=== PATIENT | female | born 1930 | race Caucasian/White ===

== ENCOUNTER → 2016-04-28 | Outpatient (CLI) | payer OTHER, MEDICARE ==
--- NOTE | 2016-04-29 09:03 | DX ---
DEXA Bone Mineral Densitometry Clinical Indications: Osteoporosis screening in a postmenopausal female .The patient is on Synthroi d therapy. Comparison: November 2011 and October 2007. Technique: Bone Mineral Densitometry (BMD) by Dual Energy X-Ray Absorptiometry (DEXA) was performed utilizing the Eversight scanner. The lumbar spine was evaluated in the AP projection. The daniel ateral hips and left forearm were evaluated in the AP projection. Vertebral fracture assessment was also performed. AP Lumbar Spine: The L1, L2, L3 and L4 vertebral bodies were evaluated. Lumbar spine values are of dubious validity due to sclerosis and minimal scoliotic curvature. AP Left Hip: Femoral neck. BMD: 0.792 gm/cm2 T-score: -1.8 SD Z-score: 0.6 SD Not significantly changed from the most recent study. AP Right Hip: Total hip. BMD: 0.854 gm/cm2 T-score: -1.2 SD Z-score: 1.0 SD Not significantly changed. AP Left Forearm, 03/18: BMD: 0.745 gm/cm2 T-score: -1.5 SD Z-score: 1.5 SD Not significantly changed from the most recent study. Vertebral Fracture Assessment: No significant fracture deformity. Conclusion: Considering the lowest measured site, the patient's bone density is low; osteopenic ( -2 .5 < T-score < -1 ). The ten year risk for any major osteoporotic fracture is 14.6 % and for a hip fracture is 4.2 %. Any bone loss in this patient is probably related to aging or estrogen deficiency. Recommendations: To prevent osteoporosis and to promote bone density, consider the following recomme ndations: 1. Pursue a regular regimen of weightbearing and muscle strengthening exercises. 2. Optimize daily calcium intake. 3. Check serum hydroxy vitamin D3 (normal >30ng/ml). 4. Ensure daily intake of vitamin D is 800 international units. 5. Consider follow-up DEXA scan in two years to assess the rate of bone loss in this patient.
== END ==
LOC: FIMAGING 14:39
PROVIDERS: ATTEND Internal Medicine
DX: Z13.820 Encounter for screening for osteoporosis (principal); M85.80 Other specified disorders of bone density and structure, unspecified site; E03.9 Hypothyroidism, unspecified; Z78.0 Asymptomatic menopausal state; Z79.899 Other long term (current) drug therapy

== ENCOUNTER → 2016-06-30 | Outpatient (CLI) | payer OTHER, MEDICARE | LOC: BHFA 13:00 | PROVIDERS: ATTEND Internal Medicine Cardiovascular Disease | DX: R07.9 Chest pain, unspecified (principal); R06.02 Shortness of breath | CPT/HCPCS: 78452; 93017; A9500 ==

== ENCOUNTER → 2016-07-01 | Outpatient (CLI) | payer OTHER, MEDICARE | LOC: BHFA 09:15 | PROVIDERS: ATTEND Internal Medicine | DX: R07.9 Chest pain, unspecified (principal); R55 Syncope and collapse; R06.02 Shortness of breath; R42 Dizziness and giddiness ==

== ENCOUNTER → 2016-07-22 | Outpatient (CLI) | payer OTHER, MEDICARE | LOC: BHFA 09:00 | PROVIDERS: ATTEND Internal Medicine | DX: R42 Dizziness and giddiness (principal); R06.02 Shortness of breath ==

== ENCOUNTER → 2016-07-24 | Outpatient (CLI) | payer OTHER, MEDICARE | LOC: BHFA 10:30 | PROVIDERS: ATTEND Internal Medicine Cardiovascular Disease | DX: R42 Dizziness and giddiness (principal) ==

== ENCOUNTER 2016-08-05 10:36 | Day surgery (SDC) | payer OTHER, MEDICARE ==
[2016-08-05] MEDS ORDERED: LIDOCAINE 1% 30 ML SDV ONE (12:02)
--- NOTE | 2016-08-05 15:01 | CPR ---
[f rep st] NONINVASIVE CARDIAC PROCEDURE REPORT PROCEDURE PERFORMED: Implantable loop recorder placement. INDICATION: Near syncope. PROCEDURE: Written informed consent was obtained. No sedation was administered. Local anesthesia was administered in the left parasternal area after prepping and draping under sterile precautions. LINQ monitor was placed in the 4th left intercostal space using standard technique, and the wound w as closed using 2 jalen. The device is a [employer] LINQ serial number [id number]. Device is programmed to detect hear t rate less than 40 beats per minute, more than 150 beats per minute, pauses more than 3 seconds, or patient activated events. No complications. /[id number]/MODL
== END 2016-08-05 14:45 | disposition home or self-care (01) ==
LOC: FCATH 10:36
PROVIDERS: ATTEND Internal Medicine Cardiovascular Disease
PROC: 0JH632Z Insertion of Monitoring Device into Chest Subcutaneous Tissue and Fascia, Percutaneous Approach (ICD-10-PCS; principal; 2016-08-05)
DX: R55 Syncope and collapse (principal)
CPT/HCPCS: 33282; C1764

== ENCOUNTER → 2016-08-27 | Outpatient (CLI) | payer OTHER, MEDICARE | LOC: BHFA 11:00 | PROVIDERS: ATTEND Internal Medicine Cardiovascular Disease | DX: R06.02 Shortness of breath (principal); R42 Dizziness and giddiness ==

== ENCOUNTER → 2016-10-27 | Outpatient (CLI) | payer OTHER, MEDICARE | LOC: CIMAGING 10:44 | PROVIDERS: ATTEND Internal Medicine | DX: Z12.31 Encounter for screening mammogram for malignant neoplasm of breast (principal) | CPT/HCPCS: G0202 ==

== ENCOUNTER → 2016-11-13 | Outpatient (CLI) | payer OTHER, MEDICARE | LOC: BHFA 13:45 | PROVIDERS: ATTEND Internal Medicine Cardiovascular Disease | DX: R00.2 Palpitations (principal) ==

== ENCOUNTER 2017-04-28 09:50 | Emergency (ER) | payer OTHER, MEDICARE ==
[2017-04-28 10:00] VITALS: TEMP 98.2
--- NOTE | 2017-04-28 10:09 | CPEKG ---
Heart Rate: 142 RR Interval: 423 QRSD Interval: 76 QT Interval: 296 QTC Interval: 455 QRS [place]: -59 T Wave [place]: 108 EKG Severity - ABNORMAL ECG - EKG Impression: JUNCTIONAL TACHYCARDIA EKG Impression: PROBABLE INFERIOR INFARCT, OLD EKG Impression: ABNRM R PROG, CONSIDER ASMI OR LEAD PLACEMENT EKG Impression: LATERAL LEADS ARE ALSO INVOLVED Electronically Signed By: Selvin Hernandez 28-Apr-2017 11:50:02
[2017-04-28] MEDS ORDERED: NS 500 ML IV ONE (10:17)
--- NOTE | 2017-04-28 10:18 | EDPHY ---
H & P Stated Complaint: tachycardia Time Seen by Provider: 04/28/17 10:03 HPI/ROS: CHIEF COMPLAINT: Lightheadedness HISTORY OF PRESENT ILLNESS: The patient presents to the emergency department with a chief complaint of lightheadedness. The patient felt mild dyspnea throughout the day yesterday. She felt poorly last night. She does have an implantable recorder. She reported an event had o'clock in the morning and was notified cardiology did she was having tachycardia. She presents to the emergency department at the recommendation of her molding manager. The patient currently denies any chest pain or shortness of breath. She denies any recent fever, cough or congestion. The patient is currently anticoagulated in takes diltiazem. She is status post ablation approximately 10 years ago. REVIEW OF SYSTEMS: A comprehensive 10 point review of systems is otherwise negative aside from elements mentioned in the history of present illness. Source: Patient Exam Limitations: No limitations - Personal History Tetanus Vaccine Date: >10 YRS - Medical/Surgical History Hx Asthma: No Hx Chronic Respiratory Disease: No Hx Diabetes: No Hx Cardiac Disease: Yes Hx Renal Disease: No Hx Cirrhosis: No Hx Alcoholism: No Hx HIV/AIDS: No Hx Splenectomy or Spleen Trauma: No Other PMH: afib, hypothyroid, ablation, MARIE knee replacement, cataract surgery MARIE, ganglioma surgery, hysterectomy - Social History Smoking Status: Never smoked - Physical Exam Exam: General Appearance: Alert, no distress Eyes: Pupils equal and round no pallor or injection ENT, Mouth: Mucous membranes moist Respiratory: There are no retractions, lungs are clear to auscultation Cardiovascular: Tachycardic, regular Gastrointestinal: Abdomen is soft and nontender, no masses, bowel sounds normal Neurological: Grossly normal motor exam with equal strength in all 4 extremities Skin: Warm and dry, no rashes Musculoskeletal: Neck is supple nontender Extremities: symmetrical, full range of motion Constitutional: Initial Vital Signs Temperature (C) 36.8 C 04/28/17 09:56 Heart Rate 147 H 04/28/17 09:56 Respiratory Rate 20 04/28/17 09:56 Blood Pressure 96/79 L 04/28/17 09:56 O2 Sat (%) 96 04/28/17 09:56 O2 Delivery Mode Room Air Allergies/Adverse Reactions: No Allergies [NKDA] Allergy (Verified 04/28/17 09:54) Home Medications: Medication Instructions Recorded Oxybutynin Chloride [Ditropan 5mg 5 mg PO BID 02/26/12 (RX)] Vit C/Dl-E AC/Lut/Copper/Znox 1 each PO BID 02/26/12 [Preservision Softgel] Levothyroxine [Synthroid 25 mcg 25 mcg PO DAILY06 05/11/12 (RX)] Recoonciled 05/11/12 05/11/12 Rn Or Lpn Completed 05/11/12 05/11/12 Marco A 04/28/17 Fish 04/28/17 Medical Decision Making - Diagnostics EKG Interpretation: EKG #1: Complete interpretation has been separately recorded in the [facility] archive. Summary impression: Narrow complex regular tachycardia. EKG #2 (status post spontaneous conversion): Complete interpretation has been separately recorded in the [employer] archive. Summary impression: Sinus rhythm, first-degree AV block ED Course/Re-evaluation: The patient had an IV established. She presents to the ED with a narrow complex regular tachycardia. I do not see obvious flutter waves. I did discuss the case with Dr. Oscar Cheney. The patient is currently anticoagulated and NPO. She will be taken to the [facility] for cardioversion. The patient was noted to have an elevated BUN of 35 in certainly does have a mild component of dehydration. She received a L of normal saline in the emergency department. While in the ED, the patient converted back to a sinus rhythm. She has a fairly significant first-degree AV block which is chronic. I discussed case with her molding manager Dr. Cheney. At this point time she will be discharged home in the absence of any ongoing arrhythmia or symptoms. He will contact her to schedule a follow-up visit. His recommendation likely will be for ablation as the patient's MI interval makes additional increases her calcium channel aide problematic. 1:00 p.m.: The patient will be discharged home in stable condition. Differential Diagnosis: Differential diagnosis considered includes atrial fibrillation, atrial flutter, SVT, dehydration - Data Points Laboratory Results: Laboratory Results 04/28/17 10:10 04/28/17 10:10 04/28/17 04/28/17 04/28/17 10:10 10:10 10:10 WBC 17.00 10^3/uL H 10^3/uL (3.80-9.50) RBC 4.70 10^6/uL 10^6/uL (4.18-5.33) Hgb 14.5 g/dL g/dL (12.6-16.3) Hct 42.9 % % (38.0-47.0) MCV 91.3 fL fL (81.5-99.8) MCH 30.9 pg pg (27.9-34.1) MCHC 33.8 g/dL g/dL (32.4-36.7) RDW 13.2 % % (11.5-15.2) Plt Count 355 10^3/uL 10^3/uL (150-400) MPV 9.1 fL fL (8.7-11.7) Neut % (Auto) 83.6 % H % (39.3-74.2) Lymph % (Auto) 9.6 % L % (15.0-45.0) [place] % (Auto) 5.6 % % (4.5-13.0) Eos % (Auto) 0.0 % L % (0.6-7.6) Baso % (Auto) 0.1 % L % (0.3-1.7) Nucleat RBC Rel Count 0.0 % % (0.0-0.2) Absolute Neuts (auto) 14.21 10^3/uL H 10^3/uL (1.70-6.50) Absolute Lymphs (auto) 1.63 10^3/uL 10^3/uL (1.00-3.00) Absolute Monos (auto) 0.96 10^3/uL H 10^3/uL (0.30-0.80) Absolute Eos (auto) 0.00 10^3/uL L 10^3/uL (0.03-0.40) Absolute Basos (auto) 0.02 10^3/uL 10^3/uL (0.02-0.10) Absolute Nucleated RBC 0.00 10^3/uL 10^3/uL (0-0.01) Immature Gran % 1.1 % % (0.0-1.1) Immature Gran # 0.18 10^3/uL H 10^3/uL (0.00-0.10) PT 14.0 SEC SEC (12.0-15.0) INR 1.06 (0.83-1.16) Sodium 137 mEq/L mEq/L (135-145) Potassium 4.4 mEq/L mEq/L (3.5-5.2) Chloride 105 mEq/L mEq/L (97-110) Carbon Dioxide 18 mEq/l L mEq/l (22-31) Anion Gap 14 mEq/L mEq/L (8-16) BUN 35 mg/dL H mg/dL (7-23) Creatinine 0.9 mg/dL mg/dL (0.6-1.0) Estimated GFR 60 Glucose 138 mg/dL H mg/dL (70-100) Calcium 10.7 mg/dL H mg/dL (8.5-10.4) Phosphorus 3.1 mg/dL mg/dL (2.5-4.5) Medications Given: Discontinued Medications Sodium Chloride (Ns) 500 mls @ 1,000 mls/hr IV EDNOW ONE PRN Reason: Protocol Stop: 04/28/17 10:46 Last Admin: 04/28/17 10:54 Dose: 500 mls Sodium Chloride (Ns) 1,000 mls @ 0 mls/hr IV EDNOW ONE; Wide Open PRN Reason: Protocol Stop: 04/28/17 12:25 Last Admin: 04/28/17 12:28 Dose: 1,000 mls Departure - Departure Disposition: Home, Routine, Self-Care Clinical Impression: Palpitations Condition: Good Instructions: Heart Palpitations (ED) Additional Instructions: 1. Please return to the ED for any chest pain, shortness of breath, recurrent palpitations or other concerns. 2. Please try and increase your fluid intake as mild dehydration may have contributed to your symptoms today. 3. Dr. Cheney will contact you to schedule a follow-up visit to discuss further treatment options. Referrals: Nakia Dubose MD [Primary Care Provider] - As per Instructions
[2017-04-28 10:22] VITALS: RESP 18
[2017-04-28 10:22] LABS: PLATELET COUNT 355 10^3/uL (150-400)
[2017-04-28 10:30] LABS: INR 1.06 (0.83-1.16)
--- NOTE | 2017-04-28 11:06 | CPEKG ---
Heart Rate: 75 RR Interval: 800 P-R Interval: 336 QRSD Interval: 80 QT Interval: 360 QTC Interval: 402 P [place]: 255 QRS [place]: -48 T Wave [place]: 20 EKG Severity - ABNORMAL ECG - EKG Impression: SINUS OR ECTOPIC ATRIAL RHYTHM EKG Impression: FIRST DEGREE AV BLOCK EKG Impression: LAD, CONSIDER LAFB OR INFERIOR INFARCT EKG Impression: ABNRM R PROG, CONSIDER ASMI OR LEAD PLACEMENT Electronically Signed By: Selvin Hernandez 28-Apr-2017 11:50:02
[2017-04-28] MEDS ORDERED: NS 1,000 ML IV ONE (12:24)
[2017-04-28 13:33] VITALS: BP 150/86; PULSE 59; O2SAT 97
== END 2017-04-28 13:33 | disposition home or self-care (01) ==
DX: R00.2 Palpitations (principal); E86.9 Volume depletion, unspecified

== ENCOUNTER → 2017-05-07 | Outpatient (CLI) | payer OTHER, MEDICARE | LOC: BHFA 14:00 | PROVIDERS: ATTEND Internal Medicine Interventional Cardiology | DX: R06.02 Shortness of breath (principal); I47.1 Supraventricular tachycardia; M54.9 Dorsalgia, unspecified; Z80.51 Family history of malignant neoplasm of kidney | CPT/HCPCS: 78452; 93017; A9500 ==

== ENCOUNTER → 2017-05-11 | Outpatient (CLI) | payer OTHER, MEDICARE ==
[~2017-05-11] MED LIST: IOPAMIDOL (ISOVUE 370) 100 ML BTL IV ONE
== END ==
LOC: CIMAGING 13:23
PROVIDERS: ATTEND Internal Medicine Cardiovascular Disease
DX: I27.82 Chronic pulmonary embolism (principal); I70.0 Atherosclerosis of aorta; K44.9 Diaphragmatic hernia without obstruction or gangrene; I47.1 Supraventricular tachycardia; M51.34 Other intervertebral disc degeneration, thoracic region; M51.36 Other intervertebral disc degeneration, lumbar region; M48.061 Spinal stenosis, lumbar region without neurogenic claudication; Z80.51 Family history of malignant neoplasm of kidney
CPT/HCPCS: 71270; 74170; Q9967

== ENCOUNTER → 2017-05-18 | Outpatient (CLI) | payer OTHER, MEDICARE | LOC: BHCLAF 11:30 | PROVIDERS: ATTEND Internal Medicine Cardiovascular Disease | DX: R06.02 Shortness of breath (principal); I47.1 Supraventricular tachycardia | CPT/HCPCS: 93306-PO ==

== ENCOUNTER 2017-06-23 09:22 | Emergency (ER) | payer OTHER, MEDICARE ==
--- NOTE | 2017-06-23 09:42 | EDPHY ---
General - History Smoking Status: Never smoked Time Seen by Provider: 06/23/17 09:32 Narrative: CHIEF COMPLAINT: Bilateral shoulder pain HISTORY OF PRESENT ILLNESS: Patient complains of the right and left shoulders. The right shoulder pain started Thursday when she twisted awkwardly in her closet. She began to fell and caught herself with the right shoulder. She has had moderate pain since then. Pain does not radiate. It is worse with any kind of movement of the shoulder. Minimal improvement rest. Last night she felt a sudden onset of pain in the left shoulder as she twisted awkwardly as well. It is very tender to the touch. Unable to move the shoulder away from her. No direct trauma to the left shoulder. No chest pain or shortness of breath. No weakness. She has baseline paresthesia of both hands that is unremarkable and unchanged from the injury. Right-hand dominant REVIEW OF SYSTEMS: Ten systems reviewed and are negative unless otherwise noted in the HPI PCP: Dr. Win SPECIALISTS: Dr. Ferrell, orthopedist PAST MEDICAL HISTORY: Osteoarthritis, atrial fibrillation, hypothyroid, cardiac ablation, cataract, ganglia [place] PAST SURGICAL HISTORY: Left shoulder arthroplasty, cardiac ablation, bilateral TKA, cataract removal, ganglion low removal, hysterectomy SOCIAL HISTORY: Never smoker. Occasional alcohol use. Lives here independently with her spouse. FAMILY HISTORY: Noncontributory EXAMINATION General Appearance: Alert, no distress Head: normocephalic, atraumatic Eyes: Pupils equal and round, no conjunctival pallor or injection Neck: Normal inspection, supple, non-tender Respiratory: Lungs are clear to auscultation. No wheeze, rhonchi or crackles Cardiovascular: Regular rate. No murmur. Good signs of perfusion in the upper extremities with symmetric radial pulses. Neurological: A&O, nonfocal, dice spotter strength is symmetric. Interossei strength symmetric. No wrist drop of either hand. Skin: Warm and dry, no rash. No petechiae or purpura. Surgical scars on the left shoulder well-healed. Extremities: Tenderness of bilateral shoulders of the humeral head. Range of motion difficult to test in both shoulders due to pain. Range of motion of the elbows and wrist symmetric. There is no step-off or deformity of either shoulder. Psychiatric: Mood and affect normal DIFFERENTIAL DIAGNOSES: Including but not limited to sprain, strain, fracture, dislocation, subluxation , hardware malfunction MDM: 9:30 a.m. Bilateral shoulder pain from injuries in Thursday and last night. The left shoulder is more painful than the right is status post the plasty January. She is neuro intact distal to these areas with no pain in the elbows, wrists or hands. She does have baseline sensory complaints in the hand from carpal tunnel that is unchanged. X-rays of both shoulders have been ordered. She is in no acute distress otherwise. 10:30 a.m. I have reviewed the x-rays and I do not appreciate any acute fracture. There are multiple arthritic changes noted. Given the complexity of the left reverse shoulder arthroplasty, I will wait for the radiologist to interpret. 11:20 a.m. X-rays have been read as negative for acute fracture per Radiology. 11:35 a.m. Patient re-evaluated. I discussed the negative x-rays. We discussed the likelihood of soft tissue injury. The patient is able to use her right arm but has has not with the left due to pain. I did offer admission the hospital for evaluation for the possibility of custodial but she has adamantly declined. She says that she is more than comfortable going home. She has been placed in a sling for the left upper extremity for comfort. She will contact her established orthopedist for further care. I provided short course of prescription of pain medication and we discussed ED precautions. She is comfortable with this plan, as is her family at bedside. Discharged home stable condition. SUPERVISION: This patient was independently evaluated without direct involvement of or examination by the attending physician. (Popeye Gabriel) Discussion: The patient was evaluated and managed by the Physician Auxiliary Powerplant Operator. I discussed the patient's presentation and course with the midlevel provider with them and agree with the evaluation. My co-signature indicates that I have reviewed this chart and I agree with the findings and plan of care as documented. I am the secondary supervising physician. (Vanessa Cortes) - Objective Vital Signs: Initial Vital Signs Temperature (C) 36.4 C 06/23/17 09:27 Heart Rate 81 06/23/17 09:27 Respiratory Rate 18 06/23/17 09:27 Blood Pressure 151/85 H 06/23/17 09:27 O2 Sat (%) 96 06/23/17 09:27 O2 Delivery Mode Room Air Allergies/Adverse Reactions: No Allergies [NKDA] Allergy (Verified 06/23/17 09:25) Home Medications: Medication Instructions Recorded Oxybutynin Chloride [Ditropan 5mg 5 mg PO BID 02/26/12 (RX)] Vit C/Dl-E AC/Lut/Copper/Znox 1 each PO BID 02/26/12 [Preservision Softgel] Levothyroxine [Synthroid 25 mcg 25 mcg PO DAILY06 05/11/12 (RX)] Cardizem 04/28/17 Eliquis 04/28/17 Hydrocodone/APAP 5/325 [[place] 1 - 2 tab PO Q4H PRN #13 tab 06/23/17 5/325 (*)] Departure - Departure Disposition: Home, Routine, Self-Care Clinical Impression: Sprain of shoulder, right, Sprain of shoulder, left Condition: Good Instructions: Shoulder Sprain (ED) Additional Instructions: 1. Ice to affected area as needed 2. Barnard as prescribed as needed. Please clear this with your medical office professional instructor to prescribed or Eliquis prior to taking the medication 3. Contact established orthopedist Dr. Ferrell for outpatient follow-up 4. Notify your primary care physician of this visit 5. ED precautions as discussed Referrals: Nakia Dubose MD [Primary Care Provider] - As per Instructions Prescriptions: Hydrocodone/APAP 5/325 [[place] 5/325 (*)] 1 - 2 tab PO Q4H PRN #13 tab PRN Reason: Pain, Moderate
[2017-06-23 11:56] VITALS: BP 148/78
== END 2017-06-23 12:01 | disposition home or self-care (01) ==
DX: S43.401A Unspecified sprain of right shoulder joint, initial encounter (principal); S43.402A Unspecified sprain of left shoulder joint, initial encounter; X50.9XXA Other and unspecified overexertion or strenuous movements or postures, initial encounter; Y92.89 Other specified places as the place of occurrence of the external cause; Y99.8 Other external cause status; Y93.89 Activity, other specified
CPT/HCPCS: 73030; 99284; A4565

== ENCOUNTER 2017-09-01 10:49 | Observation (INO) | payer OTHER, MEDICARE ==
[~2017-09-01 10:49] MED LIST changes: +BUPIVACAINE 0.75% 10 ML SDV EP ONE; -IOPAMIDOL (ISOVUE 370) 100 ML BTL IV ONE
[2017-09-01] MEDS ORDERED: NS 1,000 ML IV ONE (10:55)
--- NOTE | 2017-09-01 10:57 | PDANEPAE ---
ANE History of Present Illness 86 year old female with history of previous AVNRT cardiac ablation with recent near syncopal events (s/p monitor) now presents for A.Flutter ablation. ANE Past Medical History - Cardiovascular History Hx Hypertension: No Hx Arrhythmias: Yes Hx Chest Pain: No Hx Coronary Artery / Peripheral Vascular Disease: No Hx CHF / Valvular Disease: No Hx Palpitations: No Cardiovascular History Comment: STERNAL DISCOMFORT 08/2014. TESTING OK. BRADYCARDIA. ABLATION FOR SVT 2008. Near syncopal events. LINK recorder - showing A. Flutter - Pulmonary History Hx COPD: No Hx Asthma/Reactive Airway Disease: No Hx Recent Upper Respiratory Infection: No Hx Oxygen in Use at Home: No Hx Sleep Apnea: No - Neurologic History Hx Cerebrovascular Accident: No Hx Seizures: No Hx Dementia: No - Endocrine History Hx Diabetes: No Endocrine History Comment: HYPOTHYROID - treated; No changes to levothyroxine dose recently. - Renal History Hx Renal Disorders: Yes Renal History Comment: UA FREQUENCY - Liver History Hx Hepatic Disorders: No - Neurological & Psychiatric Hx Hx Neurological and Psychiatric Disorders: No - Cancer History Hx Cancer: No - Congenital Disorder History Hx Congenital Disorders: No - GI History Hx Gastrointestinal Disorders: Yes Gastrointestinal History Comment: HEARTBURN - Other Health History Other Health History: FREQUENT NOSE BLEED PREV NASAL CAUTERY. ARTHRITIS. Patient has a history of left vocal cord injection. - Chronic Pain History Chronic Pain: Yes (RT SHLDR) - Surgical History Prior Surgeries: LT VOCAL CORD INJECTION 06/2010. MARIE TOTAL KNEE. ABLATION FOR SVT 2008. BREAST BX. RT BUNION. LT CARPALTUNNEL RELEASE. CATARACT. HYSTERECTOMY. RT TOTAL KNEE. REMVL NECK AREA PARAGANGLIOMA. TONSILLECTOMY. LT VEIN LIGATION ANE Review of Systems Review of Systems: - Exercise capacity Exercise capacity: <4 METS (Can perform activities of daily living, but does report getting intermittent light headed sensation doing yard work or cleaning.) - Systems Muscolosketal: Reports: neck pain ANE Patient History - Allergies Allergies/Adverse Reactions: No Allergies [NKDA] Allergy (Verified 06/23/17 09:25) - Home Medications Home medications: home medication list seen and reviewed Home Medications: Oxybutynin Chloride [Ditropan 5mg (RX)] 5 mg PO DAILY 02/26/12 [Last Taken 08/30] Vit C/Dl-E AC/Lut/Copper/Znox [Preservision Softgel] 1 each PO BID 02/26/12 [ Last Taken 08/30/17] Levothyroxine [Synthroid 25 mcg (RX)] 25 mcg PO DAILY06 05/11/12 [Last Taken ] Apixaban [Eliquis] 2.5 mg PO BID 04/28/17 [Last Taken 08/29/17] Diltiazem Cd [Cardizem ER 120 MG (*)] 120 mg PO DAILY 04/28/17 [Last Taken 08/30] Acetaminophen [Tylenol 325mg (*)] 325 mg PO DAILY PRN 08/26/17 [Last Taken Unknown] Fexofenadine HCl [Yuliya Allergy] 60 mg PO DAILY PRN 08/26/17 [Last Taken Unknown] - NPO status NPO Status: no food or drink >8 hours - Anes Hx Anes Hx: no prior problems - Smoking Hx Smoking Status: Never smoked Marijuana use: No - Alcohol Use Alcohol Use: Rarely - Family Anes Hx Family Anes Hx: neg - N/A ANE Labs/Vital Signs - Labs Result Diagrams: 09/01/17 11:30 09/01/17 11:30 - Vital Signs Vital Signs: reviewed preoperatively; see RN documention for details (Vitals reviewed on monitor in pre-op room during patient interview) ANE Physical Exam - Airway Neck exam: decreased ROM (Decreased ROM on neck extension (reports pain in neck with extension)) Mallampati Score: Class 2 Mouth exam: normal dental/mouth exam - Pulmonary Pulmonary: no respiratory distress - Cardiovascular Cardiovascular: regular rate and rhythym - ASA Status ASA Status: III ANE Anesthesia Plan Anesthesia Plan: general endotracheal anesthesia
--- NOTE | 2017-09-01 11:17 | CPEKG ---
Heart Rate: 83 RR Interval: 723 P-R Interval: 232 QRSD Interval: 86 QT Interval: 368 QTC Interval: 433 P [place]: -83 QRS [place]: -66 T Wave [place]: 48 EKG Severity - ABNORMAL ECG - EKG Impression: SINUS RHYTHM EKG Impression: FIRST DEGREE AV BLOCK EKG Impression: INFERIOR INFARCT, AGE INDETERMINATE Electronically Signed By: Oscar Cheney 01-Sep-2017 16:26:49
--- NOTE | 2017-09-01 11:40 | PDGENHP ---
History & Physical Chief Complaint: AFL, near syncope Relevant Physical Exam: s1s2 rrr cta ao3 Cardiorespiratory Assessment: AFL ablation. Has long [place] interval, may need pacemaker post ablation, patient aware
[2017-09-01 11:44] LABS: PLATELET COUNT 282 10^3/uL (150-400)
[2017-09-01 11:52] LABS: INR 0.92 (0.83-1.16); PROTIME(PATIENT) 12.6 SEC (12.0-15.0)
[2017-09-01] MEDS ORDERED: HEPARIN 10,000 UNIT/10 ML MDV (1,000 UNIT/ML) ONE (12:26)
[2017-09-01] MEDS ORDERED: LIDOCAINE 1% 300 MG/30 ML SDV ONE (12:26)
[2017-09-01] MEDS ORDERED: fentaNYL 100 MCG/2 ML INJ ONE (13:01)
[2017-09-01] MEDS ORDERED: PROPOFOL/EMULSION 500 MG/50 ML BOTTLE IV ONE ×2 (13:02→14:05)
[2017-09-01] MEDS ORDERED: ROCURONIUM 50 MG/5 ML VIAL ONE ×2 (13:14→14:04)
[2017-09-01] MEDS ORDERED: PHENYLEPHRINE HCL 100 MCG/ML SYR ONE (13:48)
[2017-09-01] MEDS ORDERED: PHENYLEPHRINE HCL 100 MCG/ML SYR IVP PRN (14:51)
[2017-09-01] MEDS ORDERED: fentaNYL 100 MCG/2 ML INJ IVP PRN (14:51)
[2017-09-01] MEDS ORDERED: ONDANSETRON 4 MG/2 ML VIAL IVP PRN (14:51)
[2017-09-01] MEDS ORDERED: NS 500 ML IV PRN (14:51)
[2017-09-01] MEDS ORDERED: NALOXONE HCL 0.4 MG/ML INJ IVP PRN (14:51)
[2017-09-01] MEDS ORDERED: SUGAMMADEX SODIUM 200 MG/2 ML VIAL IVP ONE (14:55)
[2017-09-01] MEDS ORDERED: ONDANSETRON 4 MG/2 ML VIAL ONE (14:55)
--- NOTE | 2017-09-01 15:06 | EPPROC ---
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 The right clavicular region, right groin, and left groin area were prepped and draped in the usual sterile manner. Anesthesiologist Dr. Eva Villanueva administered general anesthesia. Appropriate non-invasive blood pressure, pulse oximetry and end-tidal CO2 monitoring was established. All catheters were placed percutaneously using the modified Seldinger technique , and advanced into position under fluoroscopic guidance. One #7 Indonesian deflectable octapolar electrode catheter was advanced to the His-bundle position via the left femoral vein , this was then placed in the coronary sinus. One # 7 Indonesian Halo catheter was inserted through the L femoral vein and was placed at the tricuspid annulus we had to use long 7Fr sheath due to iliac vein tortuosity. Heparin was administered to keep ACT > 200 seconds. Programmed stimulation was performed from the right atrium, coronary sinus ( left atrium) and right ventricle. Parahisian pacing demonstrated all retrograde conduction over the AV node. SCL 940 AH 175 HV 45 ms, AV WBB 590 ms. All antegrade conduction over slow AV marisa pathway. On arrival to the Electrophysiology Laboratory the patient was in sinus rhythm. Atrial flutter, CL 240 ms was easily induced by CS pacing. In preparation for ablation of typical atrial flutter, a high-resolution 3D (3 dimensional) Carto electroanatomical map of the sub-Eustachian isthmus and right atrium was obtained during pacing of the posterolateral coronary sinus. For ablation of typical atrial flutter, one Agilis sheath was placed in the right atrium. A #8 Indonesian deflectable quadrapolar electrode catheter (2mm-5mm- 2mm spacing) with 3.5 mm irrigated tip electrode STSF catheter and location sensor for the Atigeo mapping system was inserted in the long sheath and advanced to the right atrium. Radiofrequency applications were applied between the tricuspid annulus at 0630 oclock as seen in the HUNGARIAN view and the inferior vena cava. This achieved conduction block across the isthmus. Following ablation of the atrial flutter, programmed atrial stimulation was performed in the baseline state and during infusion of isoproterenol 2 mcg/min. No atrial arrhythmias were inducible post ablation. Post ablation, a high-resolution electroanatomical map of the sub-Eustachian isthmus was obtained during pacing of the posterolateral coronary sinus. This confirmed conduction block across the sub-Eustachian isthmus. Bidirectional block was also confirmed by pacing. The catheters were removed. Sheaths were removed in the EP lab after applying subcutaneous purse string suture. The patient was transferred to the cardiovascular holding area in stable condition. There were no apparent complications. CONCLUSIONS: 1. Cavotricuspid isthmus dependent atrial flutter. 2. Successful catheter mediated ablation of cavotricuspid isthmus achieving bi -directional conduction block across cavotricuspid isthmus. 3. 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 4. No apparent complications. Patient Problems: Problems Problem Status Onset Atrial flutter Acute
[2017-09-01] MEDS ORDERED: ACETAMINOPHEN 325 MG TAB PO PRN (15:07)
--- NOTE | 2017-09-01 15:45 | CPEKG ---
Heart Rate: 68 RR Interval: 882 P-R Interval: 344 QRSD Interval: 86 QT Interval: 420 QTC Interval: 447 P Jackson: 52 QRS Jackson: -63 T Wave Jackson: 10 EKG Severity - ABNORMAL ECG - EKG Impression: SINUS RHYTHM EKG Impression: FIRST DEGREE AV BLOCK EKG Impression: INFERIOR INFARCT, AGE INDETERMINATE EKG Impression: BORDERLINE R WAVE PROGRESSION, ANTERIOR LEADS Electronically Signed By: Oscar Cheney 01-Sep-2017 16:26:28
[2017-09-01] MEDS ORDERED: CEPACOL LOZENGE PO PRN (16:39)
--- NOTE | 2017-09-01 16:40 | POSTANESTH ---
Post Anesthetic Evaluation Cardiovascular Status: Normal, Stable Respiratory Status: Normal, Stable Level of Consciousness/Mental Status: Can Participate in Eval, Alert and Oriented Pain Control: Adequate, Prn Tx Ordered Nausea/Vomiting Control: Adequate, Prn Tx Ordered Complications Possibly Related to Anesthesia: None Noted
[2017-09-01] MEDS: PRESERVISION AREDS2 FORMULA EYE VIT 1 EACH PO SCH (19:07)
[2017-09-02 04:18] LABS: PLATELET COUNT 225 10^3/uL (150-400)
[2017-09-02] MEDS ORDERED: LEVOTHYROXINE 25 MCG TAB PO SCH (06:00)
[2017-09-02] MEDS: PRESERVISION AREDS2 FORMULA EYE VIT 1 EACH PO SCH (08:42)
[2017-09-02] MEDS ORDERED: CETIRIZINE 10 MG TAB PO PRN (09:00)
[2017-09-02] MEDS ORDERED: OXYBUTYNIN CHLORIDE 5 MG TAB PO SCH (09:00)
--- NOTE | 2017-09-02 09:04 | CPEKG ---
Heart Rate: 68 RR Interval: 882 P-R Interval: 344 QRSD Interval: 88 QT Interval: 416 QTC Interval: 443 P Florence: 36 QRS Florence: -67 T Wave Florence: 37 EKG Severity - ABNORMAL ECG - EKG Impression: SINUS RHYTHM EKG Impression: FIRST DEGREE AV BLOCK EKG Impression: PROBABLE INFERIOR INFARCT, AGE INDETERMINATE EKG Impression: CONSIDER ANTERIOR INFARCT Electronically Signed By: Oscar Cheney 02-Sep-2017 11:01:09
[2017-09-02 09:51] VITALS: BP 129/79
--- NOTE | 2017-09-02 10:15 | ECHO ---
[email or web address] [address] [address] Main: [phone] Fax: Transthoracic Echocardiogram Name: DAVE ROMO MR#: [id number] Study Date: 09/02/2017 Study Time: 09:21 AM Date of : 1930 Age: 86 year(s) Height: 149.9 cm (59 in.) Weight: 63.05 kg (139 lb.) BSA: 1.58 m2 Gender: Female Examination: Echo Indication: F/U post EP study Image Quality: Contrast: Requested by: Oscar Cheney BP: / Heart Rate: Rhythm: Indication: F/U post EP study Procedure Staff Woods Warden: Trini Calderon RDCS Reading Physician: Oscar Cheney MD Requesting Provider: Oscar Cheney MD Conclusions: Mild concentric LV hypertrophy. Global hypercontractility of the left ventricle. The ejection fraction is estimated to be 70-75 %. Measurements: Chambers Valvular Assessment AV/MV Valvular Assessment TV/PV Normal Normal Normal Name Value Range Name Value Range Name Value Range Ao Yamileth (MM): 3.2 cm (2.2 cm-3.7 AV Vmax: 1.27 m/s (1 m/s-1.7 TR Vmax: 2.16 mm/s ( - ) cm) m/s) TR PGmax: 19 mmHg ( - ) IVSd (2D): 0.9 cm (0.6 cm-1.1 AV meanP mmHg ( - ) syst. PAP: 24 mmHg ( - ) cm) MV E Vmax: 0.57 m/s ( - ) LVDd (2D): 4.2 cm (3.9 cm-5.3 MV A Vmax: 0.89 m/s ( - ) cm) MV E/A: 0.64 ( - ) LVPWd (2D): 0.9 cm ( - ) EF Range: 70-75 % Continued Measurements: Chambers Valvular Assessment AV/MV Valvular Assessment TV/PV Name Value Name Value Name Value LADs: 3.6 cm MV E' Septal: 0.07 m/s CVP (est.): 5 mmHg LADs Lon.5 cm MV E/E' Septal: 8.40 LA Area: 16.0 cm2 Findings: Left Ventricle: Normal size left ventricle. Mild concentric LV hypertrophy. Global hypercontractility of the left ventricle. The ejection fraction is estimated to be 70-75 %. No regional wall motion abnormality. Patient: DAVE ROMO Study Date: 09/02/2017 Page 1 of 2 09:21 AM Right Ventricle: Normal size right ventricle. Left Atrium: The left atrium is normal in size. Right Atrium: The right atrium is normal in size. Mitral Valve: The mitral valve is normal in appearance and function. Aortic Valve: The aortic valve is normal in appearance and function. Trivial aortic valve regurgitation. Tricuspid Valve: The tricuspid valve is normal in appearance and function. Trivial tricuspid valve regurgitation. Pulmonic Valve: The pulmonic valve is normal in appearance and function. Aorta: The aorta is normal. Pericardium: Fat pad vs. trace anterior pericardial effusion.. (No Signature Object) Patient: DAVE ROMO Study Date: 09/02/2017 Page 2 of 2 09:21 AM [id number]
--- NOTE | 2017-09-03 01:11 | GDS ---
[f rep st] DISCHARGE SUMMARY ADMIT DIAGNOSES: 1. Atrial flutter. 2. Planned ablation procedure. DISCHARGE DIAGNOSIS: Status post successful ablation of atrial flutter with supraventricular tachyca rdia ablation. COURSE OF HOSPITALIZATION: The patient was seen in clinic by Dr. Oscar Cheney in June 2017. Reviewin g her cardiac status with known past ablation therapy in 2008, having an AVNRT ablation at that time. At this time, she has atrial flutter with recommendation for SVT ablation. In June, she was not r nida to proceed knowing that there was a possibility that a pacemaker may need to be placed due to si gnificant first-degree heart block and brief second-degree heart block noted on the LINQ monitoring. She has continued with Eliquis for anticoagulation. She was also seen by Dr. Pablo Pinzon i n June having additional problems with her atrial flutter. At that time, he recommended proceeding with ablation therapy. She held out until recently. She was having more problems with palpitations and atrial flutter with near syncope. Again, Dr. Cheney recommended that she proceed with atrial flutte r ablation. She did understand that she has a long DE interval and may need a pacemaker post ablatio n. She agreed to proceed with ablation therapy. Dr. Cheney was able to isolate the problematic area an d successfully performed catheter-mediated cavotricuspid isthmus achieving a bidirectional block acro ss the cavo isthmus noting underlying AV node disease with first-degree AV block. There were no comp lications with the procedure. She returned to her room for overnight observation where she has done well. She has been up in the room walking and has no complaints. At this time, she is stable for danial vinson with followup with Dr. Cheney in 1 week. MEDICATIONS: She has no allergies. She will go home on Eliquis 2.5 mg twice daily. Cardizem ER 120 mg daily. Levothyroxine 25 mcg daily. Ditropan 5 mg daily. PreserVision soft gel 1 tablet twice d aily. Tylenol 325 mg daily as needed. Yuliya Allergy 60 mg daily as needed. Cepacol lozenges as n eeded. PHYSICAL EXAMINATION: VITAL SIGNS: On day of discharge, blood pressure 129/79, heart rate 62 and re gular, oxygen saturation 97%, temperature 36.1. EKG showed a sinus rhythm with a rate of 68, first-d egree AV block, read by Dr. Cheney. HEART: Rate regular. No murmurs, rubs, gallops. LUNGS: Sounds a re clear to auscultation. No wheezes, rales, or rhonchi. EXTREMITIES: Groin sites are intact bilat erally. No bleeding, induration, or pain. Peripheral pulses are 2+ bilaterally. PROCEDURES: 09/01/2017: A flutter ablation procedure. Conclusion: 1. Cavotricuspid isthmus dependent atrial flutter. 2. Successful catheter-mediated cavotricuspid isthmus achieving bidirectional block across cavotricu spid isthmus. 3. Underlying AV node disease with first-degree AV block. 4. No apparent complications. 5. SVT ablation. Echocardiogram 09/02/2017: 1. Ejection fraction 70% to 75%. 2. Fat pad versus trace anterior pericardial effusion. DISCHARGE PLAN: 1. Groin care instructions provided written and verbally. She understands no heavy lifting, pushing , pulling greater than 10 pounds for 1 week. No sitting in a tub of water for 1 week. Should the si ella bleed, she is to hold pressure, and if bleeding is not stopping, go to the nearest ER. 2. She is to follow up with Dr. Cheney in 4 weeks. She has appointment made. At this time, she farida griffin is stable for discharge. /[id number]/MODL
== END 2017-09-02 11:27 | disposition home or self-care (01) ==
LOC: FCATH 10:49 → F2W 15:24
PROVIDERS: ADMIT Internal Medicine Cardiovascular Disease; ATTEND Internal Medicine Cardiovascular Disease
PROC: 5A1213Z Performance of Cardiac Pacing, Intermittent (ICD-10-PCS; principal; 2017-09-01)
PROC: 02563ZZ Destruction of Right Atrium, Percutaneous Approach (ICD-10-PCS; principal; 2017-09-01)
PROC: 4A023FZ Measurement of Cardiac Rhythm, Percutaneous Approach (ICD-10-PCS; principal; 2017-09-01)
PROC: 02573ZZ Destruction of Left Atrium, Percutaneous Approach (ICD-10-PCS; principal; 2017-09-01)
PROC: 025K3ZZ Destruction of Right Ventricle, Percutaneous Approach (ICD-10-PCS; principal; 2017-09-01)
PROC: 02K83ZZ Map Conduction Mechanism, Percutaneous Approach (ICD-10-PCS; principal; 2017-09-01)
PROC: 02H73MZ Insertion of Cardiac Lead into Left Atrium, Percutaneous Approach (ICD-10-PCS; principal; 2017-09-01)
DX: I48.92 Unspecified atrial flutter (principal)
CPT/HCPCS: 93005; 93306; 93613; 93621; 93653; C1731; C1732; C1766; J1644; J2370; J2405; J2704; J3010

== ENCOUNTER → 2017-12-03 | Outpatient (CLI) | payer OTHER, MEDICARE | LOC: CIMAGING 10:22 | PROVIDERS: ATTEND Internal Medicine | DX: Z12.31 Encounter for screening mammogram for malignant neoplasm of breast (principal) ==

== ENCOUNTER 2018-04-16 16:32 | Emergency (ER) | payer OTHER, MEDICARE ==
--- NOTE | 2018-04-16 16:48 | EDPHY ---
H & P Stated Complaint: Tachycardic to 150c activity, dizziness. Time Seen by Provider: 04/16/18 16:48 - Personal History Current Tetanus/Diphtheria Vaccine: Yes Tetanus Vaccine Date: >10 YRS - Medical/Surgical History Hx Asthma: No Hx Chronic Respiratory Disease: No Hx Diabetes: No Hx Cardiac Disease: Yes Hx Renal Disease: No Hx Cirrhosis: No Hx Alcoholism: No Hx HIV/AIDS: No Hx Splenectomy or Spleen Trauma: No Other PMH: afib, hypothyroid, ablation, MARIE knee replacement, cataract surgery MARIE, ganglioma surgery, hysterectomy - Social History Smoking Status: Never smoked Constitutional: Initial Vital Signs Temperature (C) 36.3 C 04/16/18 16:39 Heart Rate 101 H 04/16/18 16:39 Respiratory Rate 16 04/16/18 16:39 Blood Pressure 92/67 L 04/16/18 16:39 O2 Sat (%) 95 04/16/18 16:39 O2 Delivery Mode Room Air Allergies/Adverse Reactions: No Allergies [NKDA] Allergy (Verified 04/16/18 16:39) Home Medications: Medication Instructions Recorded Oxybutynin Chloride [Ditropan] 5 mg PO DAILY 02/26/12 Vit C/Dl-E AC/Lut/Copper/Znox 1 each PO BID 02/26/12 [Preservision Softgel] Levothyroxine [Synthroid 25 mcg 25 mcg PO DAILY06 05/11/12 (*)] Apixaban [Eliquis] 2.5 mg PO BID 04/28/17 Diltiazem Cd [Cardizem ER 120 MG 120 mg PO DAILY 04/28/17 (*)] Acetaminophen [Tylenol 325mg (*)] 325 mg PO DAILY PRN 08/26/17 Fexofenadine HCl [Yuliya Allergy] 60 mg PO DAILY PRN 08/26/17 Benzocaine/Menthol 15/4 [Cepacol 1 ea PO PRN PRN lozenge 09/02/17 Lozenge] Medical Decision Making ED Course/Re-evaluation: CHIEF COMPLAINT: High heart rate HISTORY OF PRESENT ILLNESS: 87-year-old female who has a history of atrial fibrillation. She has undergone 2 ablation procedures. She has been feeling really quite good lately. Up until 3 days ago she started to feel little bit weak a little more tired and somewhat dizzy. She believes maybe her rapid heart rate started then but she does not really feel her rapid heart rate. She has a links monitor which was uploaded to [facility] today they called her to tell her to come to the emergency department because she was having a rapid heart rate. This does correlate with her mild dizziness and inability to function at her best during physical therapy. She denies any chest pain chest pressure. She denies any syncope. REVIEW OF SYSTEMS: A comprehensive 10 system review of systems is otherwise negative aside from elements mentioned in the history of present illness and medical decision making. PHYSICAL EXAM: HR, BP, O2 Sat, RR. Temp noted General Appearance: Alert, well hydrated, appropriate, and non-toxic appearing. Head: Atraumatic without scalp tenderness or obvious injury Eyes: Pupils equal, round, reactive to light and accommodation, EOMI, no trauma , no injection. Ears: Clear bilaterally, no perforation, normal landmarks Nose: Atraumatic, no rhinorrhea, clear. Throat: There is no erythema or exudates, no lesions, normal tonsils, mucus membranes moist. Neck: Supple, 2+ carotid upstroke, nontender, no lymphadenopathy. Respiratory: No retractions, no distress, no wheezes, and no accessory muscle use. Lungs are clear to auscultation bilaterally. Cardiovascular: Irregularly irregular about 150, no murmurs, rubs, or gallops. Bilateral carotid, radial, dorsalis pedis, and posterior tibial pulses intact. Good capillary refill all extremities. Gastrointestinal: Abdomen is soft, nontender, non-distended, no masses, no rebound, no guarding, no peritoneal signs. Musculoskeletal: Normal active ROM of all extremities, atraumatic. Neurological: Alert, appropriate, and interactive. The patient has normal DTRs and non-focal cranial nerves, motor, sensory, and cerebellar exam. Skin: No rashes, good turgor, no nodules on palpation. Past medical history: Atrial fibrillation Past surgical history: Ablation x2 for atrial fibrillation Family history: Noncontributory Social history: , does not use tobacco drugs or alcohol, close to her daughter who lives locally and is in the room with her. DIAGNOSTICS/PROCEDURES/CRITICAL CARE TIME: The 12 lead EKG was interpreted by myself. See hard copy and/or "tracemaster" electronic copy for interpretation. Tachycardia at around 1:50 a.m. Most likely fibrillation or flutter although it seems somewhat regular. I doubt it is SVT. Repeat EKG. The 12 lead EKG was interpreted by myself. Sinus mechanism 65, first degree AV block, PVC. See hard copy and/or "tracemaster" electronic copy for interpretation. DIFFERENTIAL DIAGNOSIS: The differential diagnosis for the patient's narrow complex tachycardia included but was not limited to various causes of sinus tachycardia such as dehydration and medicines, SVT, atrial flutter, atrial fibrillation, pulmonary causes. MEDICAL DECISION MAKING: This patient is mildly symptomatic from a rapid heart rate. Most likely started 3 days ago. This patient is generally not in atrial fibrillation after her to ablation. Additionally, she has feeling a little worse today and has more dizziness on the prior 2 days. Her heart rates elevated to 150 I believe it is probably fib flutter. I have started her on diltiazem 20 mg IV and then a drip at 20 milligrams/hour. She has used Cardizem orally before and it has worked very well for her. Once her laboratory studies have returned including troponin and BNP I will contact [facility]. This patient is currently anticoagulated on Eliquis. 1730: Patient has converted to sinus mechanism on monitor. Repeat EKG ordered to confirm. 1736: Consulted with Dr. Walton, cardiology. He is comfortable with outpatient follow up as patient is fully anticoagulated already and in sinus rhythm. Reassessed patient and discussed plan. She is feeling improved and agrees to follow up plan. Return precautions discussed. - Data Points Laboratory Results: Laboratory Results 04/16/18 16:45 04/16/18 16:45 04/16/18 04/16/18 04/16/18 16:57 16:45 16:45 WBC 11.35 10^3/uL H 10^3/uL (3.80-9.50) RBC 5.08 10^6/uL 10^6/uL (4.18-5.33) Hgb 16.4 g/dL H g/dL (12.6-16.3) Hct 49.0 % H % (38.0-47.0) MCV 96.5 fL fL (81.5-99.8) MCH 32.3 pg pg (27.9-34.1) MCHC 33.5 g/dL g/dL (32.4-36.7) RDW 12.9 % % (11.5-15.2) Plt Count 348 10^3/uL 10^3/uL (150-400) MPV 9.0 fL fL (8.7-11.7) Neut % (Auto) 55.1 % % (39.3-74.2) Lymph % (Auto) 33.5 % % (15.0-45.0) [place] % (Auto) 7.9 % % (4.5-13.0) Eos % (Auto) 2.6 % % (0.6-7.6) Baso % (Auto) 0.6 % % (0.3-1.7) Nucleat RBC Rel Count 0.0 % % (0.0-0.2) Absolute Neuts (auto) 6.26 10^3/uL 10^3/uL (1.70-6.50) Absolute Lymphs (auto) 3.80 10^3/uL H 10^3/uL (1.00-3.00) Absolute Monos (auto) 0.90 10^3/uL H 10^3/uL (0.30-0.80) Absolute Eos (auto) 0.29 10^3/uL 10^3/uL (0.03-0.40) Absolute Basos (auto) 0.07 10^3/uL 10^3/uL (0.02-0.10) Absolute Nucleated RBC 0.00 10^3/uL 10^3/uL (0-0.01) Immature Gran % 0.3 % % (0.0-1.1) Immature Gran # 0.03 10^3/uL 10^3/uL (0.00-0.10) Sodium 133 mEq/L L mEq/L (135-145) Potassium 3.9 mEq/L mEq/L (3.5-5.2) Chloride 99 mEq/L mEq/L (97-110) Carbon Dioxide 24 mEq/l mEq/l (22-31) Anion Gap 10 mEq/L mEq/L (6-14) BUN 25 mg/dL H mg/dL (7-23) Creatinine 1.0 mg/dL mg/dL (0.6-1.0) Estimated GFR 53 Glucose 87 mg/dL mg/dL (70-100) Calcium 11.0 mg/dL H mg/dL (8.5-10.4) Phosphorus Pending Magnesium 2.1 mg/dL mg/dL (1.6-2.3) POC Troponin I 0.02 ng/mL ng/mL (0.00-0.08) NT-Pro-B Natriuret Pep 663 pg/mL H pg/mL (0-450) Medications Given: Discontinued Medications Diltiazem HCl (Cardizem 25 Mg/5 Ml Vial) 20 mg IVP EDNOW ONE Stop: 04/16/18 16:53 Last Admin: 04/16/18 17:04 Dose: 20 mg Diltiazem HCl 125 mg/ Dextrose 125 mls @ 0 mls/hr IV EDNOW ONE; As Directed PRN Reason: Protocol Stop: 04/16/18 16:53 Last Admin: 04/16/18 17:21 Dose: 125 mls Sodium Chloride (Ns) 500 mls @ 1,000 mls/hr IV EDNOW ONE PRN Reason: Protocol Stop: 04/16/18 17:21 Last Admin: 04/16/18 17:31 Dose: 500 mls Point of Care Test Results: Chemistry 04/16/18 16:57 POC Troponin I 0.02 ng/mL ng/mL (0.00-0.08) Departure - Departure Disposition: Home, Routine, Self-Care Clinical Impression: Rapid atrial fibrillation Condition: Good Instructions: A-fib (Atrial Fibrillation) (ED) Additional Instructions: 1. Continue taking all medications as directed 2. Follow up with Dr. Cheney early next week for reevaluation. 3. Return to the ED for worsening of condition. Referrals: Oscar Cheney MD [Primary Care Provider] - As per Instructions
[2018-04-16] MEDS ORDERED: DILTIAZEM 25 MG/5 ML VIAL IVP ONE (16:52)
[2018-04-16] MEDS ORDERED: DILTIAZEM 125 MG in D5W 125 ML IV ONE (16:52)
[2018-04-16] MEDS ORDERED: NS 500 ML IV ONE (16:52)
[2018-04-16 17:15] LABS: PLATELET COUNT 348 10^3/uL (150-400)
[2018-04-16 18:03] VITALS: BP 110/78
--- NOTE | 2018-04-16 20:14 | CPEKG ---
Test Reason : OPEN Blood Pressure : / mmHG Vent. Rate : 146 BPM Atrial Rate : 146 BPM P-R Int : 043 ms QRS Dur : 094 ms QT Int : 270 ms P-R-T Axes : 194 -67 089 degrees QTc Int : 421 ms Supraventricular tachycardia Inferior infarct, old Anterior infarct, old Confirmed by Manuel Zuniga ([id number]) on 04/16/2018 8:13:28 PM Referred By: Manuel Zuniga Confirmed By:Manuel Zuniga
== END 2018-04-16 18:06 | disposition home or self-care (01) ==
DX: I48.91 Unspecified atrial fibrillation (principal); E86.9 Volume depletion, unspecified; E03.9 Hypothyroidism, unspecified; Z96.643 Presence of artificial hip joint, bilateral; Z90.710 Acquired absence of both cervix and uterus
CPT/HCPCS: 84484-ER; 96374

== ENCOUNTER → 2018-04-20 | Outpatient (CLI) | payer OTHER, MEDICARE | LOC: FIMAGING 13:18 | PROVIDERS: ATTEND Registered Nurse | DX: R91.1 Solitary pulmonary nodule (principal); Z79.899 Other long term (current) drug therapy ==